=== PATIENT | female | born 1965 | race African-American/Black ===

== ENCOUNTER 2017-09-30 02:36 | Emergency (ER) | payer OTHER ==
[~2017-09-30] VITALS: Ht 182.9 cm; Wt 109.0 kg
[2017-09-30] MEDS ORDERED: IBUPROFEN 800MG TABLET PO ONE (04:00)
[2017-09-30 06:30] VITALS: BP 131/84
== END 2017-09-30 06:30 | disposition home or self-care (01) ==
LOC: ER 02:36
DX: M25.512 Pain in left shoulder (principal); M54.2 Cervicalgia; V73.5XXA Driver of bus injured in collision with car, pick-up truck or van in traffic accident, initial encounter; Y93.89 Activity, other specified; Y92.488 Other paved roadways as the place of occurrence of the external cause
CPT/HCPCS: 73030; 81025; 99284